=== PATIENT | male | born 1950 | race American Indian/Alaskan Native ===

== ENCOUNTER 2020-06-05 09:33 | Emergency (ER) | payer OTHER, BC, MEDICARE ==
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
[2020-06-05 11:49] VITALS: BP 137/84
== END 2020-06-05 11:48 | disposition home or self-care (01) ==
LOC: ED 09:33
DX: S13.4XXA Sprain of ligaments of cervical spine, initial encounter (principal); S43.401A Unspecified sprain of right shoulder joint, initial encounter; S83.91XA Sprain of unspecified site of right knee, initial encounter; S93.402A Sprain of unspecified ligament of left ankle, initial encounter; Z79.899 Other long term (current) drug therapy; V49.49XA Driver injured in collision with other motor vehicles in traffic accident, initial encounter; Y93.89 Activity, other specified; Y92.488 Other paved roadways as the place of occurrence of the external cause; Y99.8 Other external cause status
CPT/HCPCS: 72040; 99283

== ENCOUNTER 2021-05-03 08:29 | Outpatient (CLI) | payer BC, MEDICARE ==
--- NOTE | 2021-05-03 12:52 | Magnetic Resonance Report ---
MRI RIGHT SHOULDER WITHOUT CONTRAST INDICATION: RIGHT TORN ROTATOR CUFF. COMPARISON: None available. TECHNIQUE: Multisequence, multiplanar images were obtained. FINDINGS: ACROMIOCLAVICULAR JOINT: Moderate degenerative arthrosis with associated rotator cuff encroachment ACROMION: Type I SUPRASPINATUS: Large full-thickness tear involving entire width distal supraspinatus with retraction to glenohumeral joint and mild muscle atrophy INFRASPINATUS: Partial 50% thickness articular sided tear anterior half infraspinatus SUBSCAPULARIS: Complete tear of distal subscapularis with retraction to glenohumeral joint BICEPS TENDON, LONG HEAD: Complete tear intra-articular biceps with retraction below intertubercular groove SUBACROMIAL/SUBDELTOID SPACE: Moderate amount of bursal fluid GLENOID LABRUM: Degenerative signal superior labrum. ARTICULAR CARTILAGE: Mild degenerative arthrosis glenohumeral joint. JOINT SPACE AND CAPSULE: High riding humeral head. BONES: No significant bone marrow edema. No fracture. No osseous lesion. SUBCUTANEOUS SOFT TISSUES: No significant abnormality. ADDITIONAL FINDINGS: None. IMPRESSION: 1. Large full-thickness tear subscapularis and supraspinatus tendons 2. Partial 50% thickness articular sided tear infraspinatus 3. Complete tear intra-articular biceps 4 mild rotator cuff arthropathy 5. Rotator cuff encroachment secondary moderate AC joint degenerative arthrosis Signer Name: Delbert Ramsay MD Signed: 05/03/2021 12:47 PM Workstation Name: [id number]
== END 2021-05-03 08:30 | disposition home or self-care (01) ==
LOC: MRI 08:29
PROVIDERS: ATTEND Nurse Practitioner
DX: S46.811A Strain of other muscles, fascia and tendons at shoulder and upper arm level, right arm, initial encounter (principal); S41.011A Laceration without foreign body of right shoulder, initial encounter; M19.011 Primary osteoarthritis, right shoulder; X58.XXXA Exposure to other specified factors, initial encounter; Y93.89 Activity, other specified; Y92.89 Other specified places as the place of occurrence of the external cause; Y99.8 Other external cause status